=== PATIENT | female | born 2000 | race Caucasian/White ===

== ENCOUNTER 2020-03-08 11:17 | Emergency (ER) | payer OTHER, SELFPAY ==
--- NOTE | ~2020-03-08 | CT_ITS ---
EXAMINATION: CT abdomen pelvis w con EXAM DATE: 03/08/2020 13:47 INDICATION: Vaginal bleeding with low abdominal pain. TECHNIQUE: Spiral CT of the abdomen and pelvis was performed following intravenous injection of 100 m L Omnipaque 350. Axial, coronal and sagittal images were reviewed. The dose-length product (DLP) fo r this examination was 861.56 mGy-cm. The exposure was tailored according to patient size (auto mA e xposure control), and iterative reconstruction (ASIR) was used as additional dose reduction technique . There is no prior study for comparison. FINDINGS: The liver, spleen, adrenal glands and pancreas are unremarkable. Gallbladder is unremarkab le. No biliary obstruction. Portal and splenic veins are patent. Kidneys enhance symmetrically. T here is no hydronephrosis. The uterus is retroverted and morphologically normal. The bladder is u nremarkable. There is no retroperitoneal or pelvic lymphadenopathy. The appendix is normal. The stomach and small bowel are unremarkable. There is expected amount of c olonic stool. No free intraperitoneal gas. The heart is normal in size. There are no pericardial or pleural effusions. The lung bases are unremarkable. The bones are unremarkable. IMPRESSION: 1. No acute intra-abdominal findings. Reviewed, dictated and finalized at location B.
[2020-03-08 11:46] VITALS: BP 137/91; PULSE 88; RESP 20; TEMP 36.9; O2SAT 99
[2020-03-08 12:07] LABS: Add Urine Microscopic? YES; Appearance Urine Clear (Clear); Bilirubin Urine Negative (Negative); Blood Urine 1+ (Negative); Color Urine Yellow (Yellow); Glucose Urine UA Negative (Negative); Ketones Urine Negative (Negative); Leukocyte Esterase Ur Negative LEU/UL (Negative); Mucus Urine Rare /lpf; Nitrate Urine Negative (Negative); Protein Urine Negative (Negative); Squamous Epithelial Cell Urine Occasional /hpf (Few); Urobilinogen Urine Negative mg/dL (<2.0); WBC Urine 0-3 /hpf
[2020-03-08 12:54] LABS: Basophils Percent Auto 0.3 % (0.2-1.2); Eosinophils Absolute Auto 0.2 K/mm3 (0-0.3); Hematocrit 40.3 % (37.0-47.0); Hemoglobin 13.9 g/dL (12.0-15.0); Immature Granulocyte Absolute 0.02 K/mm3 (0.00-0.031); Immature Granulocyte Percent A 0.3 % (0-0.5); Lymphocytes Absolute Auto 1.97 K/mm3 (0.9-3.2); Lymphocytes Percent Auto 25.8 % (18.3-44.2); Mean Corpuscular HGB Conc 34.5 g/dl (32-36); Mean Corpuscular Hemoglobin 33.3 pg (26-34); Mean Corpuscular Volume 96.6 fl (80-100); Mean Platelet Volume 10.2 fl (7.4-10.4); Monocytes Absolute Auto 0.4 K/mm3 (0.1-0.6); Monocytes Percent Auto 4.7 % (2.6-8.5); Neutrophils Absolute Auto 5.1 K/mm3 (1.3-6.7); Neutrophils Percent Auto 66.9 % (45.5-73.1); Platelet Count Result 199 k/mm3 (150-375); Red Blood Count 4.17 M/mm3 (4.2-5.4); Red Cell Distribution Width 11.6 % (11.5-14.5); White Blood Count 7.6 K/mm3 (4.5-10.0)
[2020-03-08] MEDS: KETOROLAC 30 MG/ML VIAL (*BKC) IV PUSH (13:04)
[2020-03-08] MEDS: SODIUM CHLORIDE 0.9% IV 1,000 ML 999 ML IV CONT (13:05)
[2020-03-08 13:07] LABS: Alanine Aminotransferase 12 U/L (4-35); Albumin Level 4.2 g/dL (3.5-5.1); Alkaline Phosphatase 58 U/L (38-126); Anion Gap 6 mmol/L (8-16); Aspartate Amino Transferase 19 U/L (14-36); Bilirubin,Total 0.4 mg/dL (0.2-1.3); Blood Urea Nitrogen 11 mg/dL (7-17); Calcium 8.9 mg/dL (8.4-10.2); Carbon Dioxide 23 mmol/L (22-30); Chloride 109 mmol/L (98-107); Estimated CRCL calculation 109 ml/min; Estimated Glomerular Filt Rate > 60; Glucose 83 mg/dL (65-105); Lipase 15 U/L (23-300); Potassium 4.2 mmol/L (3.4-5.0); Sodium 138 mmol/L (137-145)
--- NOTE | 2020-03-08 13:21 | ED.GENADULT ---
HPI - General Adult General Chief complaint: Vaginal Bleeding Stated complaint: vaginal bleeding Time Seen by Provider: 03/08/20 12:18 Source: patient Limitations: no limitations History of Present Illness HPI narrative: Patient is a 20 y/o female complaining of generalized abdominal pain for about 1 week. She describes her pain as sharp and rates it as 8/10. There is no radiation. There is no alleviating or exacerbating factor. She also has some vomiting and diarrhea, although the vomiting has stopped. She also developed heavy vaginal bleed yesterday. She contacted her doctor and was told to come to ED for evaluation. Related Data Home Medications Medication Instructions Recorded Confirmed norethindrone-e.estradiol-iron 1 tablet PO DAILY 03/08/20 Allergies Allergy/AdvReac Type Severity Reaction Status Date / Time No Known Allergies Allergy Verified 03/08/20 13:05 Review of Systems Constitutional: Constitutional: Denies chills, Denies fever(s), Denies headache(s) and Denies weakness Eyes: Eyes: Denies blurry vision ENT: Denies headache(s) and Denies neck pain Cardiovascular: Cardiovascular: Denies chest pain and Denies dyspnea Respiratory: Respiratory: Denies cough and Denies dyspnea Gastrointestinal: Gastrointestinal: Reports abdominal pain, Reports diarrhea, Reports nausea and Reports vomiting Genitourinary: Genitourinary: Denies hematuria, Reports menorrhagia and Denies dysuria Musculoskeletal: Musculoskeletal: Denies back pain and Denies neck pain Neurologic: Denies headache(s) and Denies weakness Exam Const: General: no acute distress and well developed Orientation/consciousness: oriented to person, oriented to place, oriented to time and patient oriented x3 HENMT: Head: normocephalic Ears: external ears normal General nose exam: Normal external nose present Eyes: General: appearance normal, both eyes and all related structures Conjunctivae: conjunctivae normal Neck: Neck: normal visual inspection and full ROM Chest: Chest palpation & inspection: normal inspection of the chest and no tenderness Resp: Effort & Inspection: normal respiratory effort Auscultation: clear to auscultation bilaterally Cardio: Rate: regular rate Rhythm: regular rhythm GI: GI Palp: No abdominal tenderness and Yes Soft to palpation Skin: General skin exam: normal color and turgor normal Neuro: General: oriented to person, oriented to place, oriented to time and patient oriented x3 Cognition (Neuro): normal cognition Extrem: General: normal to inspection, full ROM and no pedal edema Psych: Appearance: grossly normal Mental Status: mental status grossly normal Affect: normal affect Course Vital Signs Vital signs: Vital Signs Temperature 36.9 C 03/08/20 11:46 Pulse Rate 88 03/08/20 11:46 Respiratory Rate 20 03/08/20 11:46 Blood Pressure 137/91 H 03/08/20 11:46 Pulse Oximetry 99 03/08/20 11:46 Temperature 36.9 C 03/08/20 11:46 Pulse Rate 88 03/08/20 14:00 Respiratory Rate 14 03/08/20 14:00 Blood Pressure 142/68 H 03/08/20 14:00 Pulse Oximetry 100 03/08/20 14:00 Medical Decision Making Vital Signs Vital Signs: Vital Signs Temperature 36.9 C 03/08/20 11:46 Pulse Rate 88 03/08/20 11:46 Respiratory Rate 20 03/08/20 11:46 Blood Pressure 137/91 H 03/08/20 11:46 Pulse Oximetry 99 03/08/20 11:46 Temperature 36.9 C 03/08/20 11:46 Pulse Rate 88 03/08/20 14:00 Respiratory Rate 14 03/08/20 14:00 Blood Pressure 142/68 H 03/08/20 14:00 Pulse Oximetry 100 03/08/20 14:00 Lab Data Result diagrams: 03/08/20 12:37 03/08/20 12:36 Labs: Lab Results 03/08/20 03/08/20 03/08/20 Range/Units 11:58 12:36 12:37 WBC 7.6 (4.5-10.0) K/mm3 RBC 4.17 L (4.2-5.4) M/mm3 Hgb 13.9 (12.0-15.0) g/dL Hct 40.3 (37.0-47.0) % MCV 96.6 (80-100) fl MCH 33.3 (26-34) pg MCHC 34.5 (32-36) g/dl R
[2020-03-08 14:00] VITALS: BP 142/68; PULSE 88; RESP 14; O2SAT 100
== END 2020-03-08 14:14 | disposition home or self-care (01) ==
PROVIDERS: Emergency Medicine; Emergency Provider Emergency Medicine; PCP Pediatrics
DX: N94.6 Dysmenorrhea, unspecified (principal); K52.9 Noninfective gastroenteritis and colitis, unspecified
CPT/HCPCS: 36415; 74177; 80053; 81001; 81025; 83690; 85025; 96361; 96374; 99284; J1885; J7030; Q9967

== ENCOUNTER 2020-09-29 13:05 | Emergency (ER) | payer OTHER, SELFPAY ==
--- NOTE | ~2020-09-29 | US_ITS ---
EXAMINATION: US OB <=14 wk fetus w TV EXAM DATE: 09/29/2020 14:53 INDICATION: Right adnexal pain. . 1st trimester. TECHNIQUE: Pelvic obstetrical transabdominal sonogram was performed by a technologist. There are mu ltiple grayscale and Doppler images available for interpretation. There are no earlier studies of th is gestation for comparison. FINDINGS: Uterus measures 10.2 x 5.4 x 4.1 cm. There is intrauterine gestation sac. pole with heart rate confirmed at 117 beats per minute. The 6 mm crown-rump length corresponds to estimated g estational age by ultrasound of 6 weeks 5 days, estimated date of confinement 05/20/2021. Yolk sac i s identified. There is no sonographic evidence of subchorionic hemorrhage. Both ovaries are ident ified and are morphologically normal, corpus luteal cyst not specifically identified. IMPRESSION: Early live intrauterine gestation. Morphologically normal ovaries. Reviewed, dictated and finalized at location B. [employer]
[2020-09-29 13:29] VITALS: BP 132/79; PULSE 83; RESP 17; TEMP 36.4; O2SAT 100
[2020-09-29 14:01] LABS: Basophils Percent Auto 0.2 % (0.2-1.2); Eosinophils Absolute Auto 0.1 K/mm3 (0-0.3); Eosinophils Percent Auto 0.9 % (0-4.4); Hematocrit 38.2 % (37.0-47.0); Hemoglobin 13.3 g/dL (12.0-15.0); Immature Granulocyte Absolute 0.02 K/mm3 (0.00-0.031); Immature Granulocyte Percent A 0.2 % (0-0.5); Lymphocytes Absolute Auto 2.42 K/mm3 (0.9-3.2); Lymphocytes Percent Auto 23.7 % (18.3-44.2); Mean Corpuscular HGB Conc 34.8 g/dl (32-36); Mean Corpuscular Hemoglobin 33.1 pg (26-34); Mean Platelet Volume 10.2 fl (7.4-10.4); Monocytes Absolute Auto 0.6 K/mm3 (0.1-0.6); Monocytes Percent Auto 5.8 % (2.6-8.5); Neutrophils Absolute Auto 7.1 K/mm3 (1.3-6.7); Neutrophils Percent Auto 69.2 % (45.5-73.1); Platelet Count Result 208 k/mm3 (150-375); Red Blood Count 4.02 M/mm3 (4.2-5.4); Red Cell Distribution Width 11.5 % (11.5-14.5); White Blood Count 10.2 K/mm3 (4.5-10.0)
[2020-09-29 14:03] LABS: Add Urine Microscopic? NO; Appearance Urine Clear (Clear); Bilirubin Urine Negative (Negative); Blood Urine Negative (Negative); Color Urine Straw (Yellow); Glucose Urine UA Negative (Negative); Ketones Urine Negative (Negative); Leukocyte Esterase Ur Negative LEU/UL (Negative); Nitrate Urine Negative (Negative); Protein Urine Negative (Negative); Urobilinogen Urine Negative mg/dL (<2.0)
[2020-09-29 14:13] LABS: Specific Grav Ur 1.003 (1.001-1.035)
[2020-09-29 14:16] LABS: Alanine Aminotransferase 14 U/L (4-35); Alkaline Phosphatase 52 U/L (38-126); Anion Gap 7 mmol/L (8-16); Aspartate Amino Transferase 22 U/L (14-36); Bilirubin,Total 0.2 mg/dL (0.2-1.3); Blood Urea Nitrogen 7 mg/dL (7-17); Calcium 8.7 mg/dL (8.4-10.2); Carbon Dioxide 23 mmol/L (22-30); Chloride 107 mmol/L (98-107); Estimated CRCL calculation 140 ml/min; Estimated Glomerular Filt Rate > 60; Glucose 86 mg/dL (65-105); Lipase 22 U/L (23-300); Potassium 3.9 mmol/L (3.4-5.0); Sodium 137 mmol/L (137-145)
--- NOTE | 2020-09-29 14:46 | PC.NURSE ---
Pt to u/s via w/c.
--- NOTE | 2020-09-29 15:42 | ED.ABDPAIN ---
HPI - Abdominal Pain General Chief Complaint: Abdominal Pain Stated Complaint: sharp abd pain/ 6 weeks Time Seen by Provider: 09/29/20 13:43 History of Present Illness HPI narrative: Patient is a 20-year-old female who presents ER with right-sided pelvic pain. Began today. She reports has been having diarrhea since yesterday. No blood. No fevers or chills or sweats. She denies vaginal bleeding or discharge but is known to be . She sees Dr. Nassar who referred her to the ER. She is G1, P0. LMP in July 2020. Related Data Home Medications Medication Instructions Recorded Confirmed progesterone micronized mg 09/29/20 09/29/20 Allergies Allergy/AdvReac Type Severity Reaction Status Date / Time No Known Allergies Allergy Verified 09/29/20 13:47 Review of Systems Review of Systems: All systems reviewed & are unremarkable except as noted in HPI and below Constitutional: Constitutional: Denies chills, Denies fever(s) and Denies weakness Cardiovascular: Cardiovascular: Denies chest pain and Denies radiating jaw, neck or arm pain Respiratory: Respiratory: Denies cough and Denies dyspnea Gastrointestinal: Gastrointestinal: Reports abdominal pain, Denies diarrhea, Denies nausea and Denies vomiting Genitourinary: Genitourinary: Denies abnormal vaginal bleeding, Denies hematuria, Denies nocturia, Denies dysuria, Denies flank pain and Denies vaginal discharge PMFSH Past Medical History Medical History (Updated 09/29/20 @ 16:29 by Jake Callahan MD) Healthy female adult Surgical History Surgical History (Updated 09/29/20 @ 16:27 by Jake Callahan MD) No history of previous surgery Social History Social History (Updated 09/29/20 @ 16:27 by Jake Callahan MD) Social History: Quit smoking upon finding out she was . Gender identity (if verbalized by the patient): Female Exam Narrative: Exam Narrative: GENERAL: Well-appearing, well-nourished, and in no acute distress. HEAD: Normocephalic, atraumatic. CHEST: Clear to auscultation. No respiratory distress. HEART: Regular rate and rhythm. Normal peripheral pulses. ABDOMEN: Soft, tender in the right pelvic region and no McBurney's point tenderness, no guarding, nondistended. EXTREMITIES: Normal range of motion. No edema. SKIN: Warm, dry, no rash. NEURO: Alert and oriented x3. PSYCH: Normal mood and affect. Course Course Emergency Course: Discussed results with Dr. Swanson office. Pt aware of results as well. Vital Signs Vital signs: Vital Signs Temperature 97.6 F 09/29/20 13:29 Pulse Rate 83 09/29/20 13:29 Respiratory Rate 17 09/29/20 13:29 Blood Pressure 132/79 09/29/20 13:29 Pulse Oximetry 100 09/29/20 13:29 Temperature 97.6 F 09/29/20 13:29 Pulse Rate 83 09/29/20 13:29 Respiratory Rate 17 09/29/20 13:29 Blood Pressure 132/79 09/29/20 13:29 Pulse Oximetry 100 09/29/20 13:29 MDM - Abdominal Pain Lab Data Result diagrams: 09/29/20 13:48 09/29/20 13:48 Labs: Lab Results 09/29/20 09/29/20 09/29/20 Range/Units 13:48 13:48 13:48 WBC 10.2 H (4.5-10.0) K/mm3 RBC 4.02 L (4.2-5.4) M/mm3 Hgb 13.3 (12.0-15.0) g/dL Hct 38.2 (37.0-47.0) % MCV 95.0 (80-100) fl MCH 33.1 (26-34) pg MCHC 34.8 (32-36) g/dl RDW 11.5 (11.5-14.5) % Plt Count 208 (150-375) k/mm3 MPV 10.2 (7.4-10.4) fl Immature Gran % (Auto) 0.2 (0-0.5) % Neut % (Auto) 69.2 (45.5-73.1) % Lymph % (Auto) 23.7 (18.3-44.2) % Logan % (Auto) 5.8 (2.6-8.5) % Eos % (Auto) 0.9 (0-4.4) % Baso % (Auto) 0.2 (0.2-1.2) % Lymph # (Auto) 2.42 (0.9-3.2) K/mm3 Logan # (Auto) 0.6 (0.1-0.6) K/mm3 Eos # (Auto) 0.1 (0-0.3) K/mm3 Baso # (Auto) 0.0 (0.0-0.1) K/mm3 Abs Immat Gran (auto) 0.02 (0.00-0.031) K/mm3 Absolute Neuts (auto) 7.1 H (1.3-6.7) K/mm3 Absolute Nucleated RBC 0.0 (0.0-0
[2020-09-29 16:45] VITALS: BP 124/76; PULSE 72; RESP 15; O2SAT 97
== END 2020-09-29 16:49 | disposition home or self-care (01) ==
PROVIDERS: Emergency Provider Emergency Medicine
DX: O26.891 Other specified pregnancy related conditions, first trimester (principal); R10.2 Pelvic and perineal pain; Z87.891 Personal history of nicotine dependence; Z3A.01 Less than 8 weeks gestation of pregnancy
CPT/HCPCS: 36415; 76801; 76817; 80053; 81003; 81025; 83690; 84702; 85025; 99284

== ENCOUNTER 2020-10-26 07:29 | Outpatient (CLI) | payer OTHER, SELFPAY ==
--- NOTE | ~2020-10-26 | US_ITS ---
EXAMINATION: US OB <= 14 weeks fetus EXAM DATE: 10/26/2020 08:00 INDICATION: Routine care. 1st trimester. TECHNIQUE: Pelvic obstetrical transabdominal sonogram was performed by a technologist. There are mu ltiple grayscale and Doppler images available for interpretation. Comparison is made to prior examina tion from 09/29/2020. FINDINGS: Uterus measures 12.5 x 7.4 x 9.0 cm. There is intrauterine gestation sac. pole with heart rate confirmed at 163 beats per minute. The 3.5 cm crown-rump length corresponds to estimated gestational age by ultrasound of 10 weeks 3 days, estimated date of confinement 05/21. There is no sonographic evidence of subchorionic hemorrhage. Ovaries were searched for but not specifically bess ntified on this transabdominal exam. IMPRESSION: Live intrauterine gestation, age by ultrasound 10 weeks 3 days. Reviewed, dictated and finalized at location A.
== END 2020-10-26 07:30 | disposition home or self-care (01) ==
PROVIDERS: Visit Provider Physician Assistant
DX: Z34.91 Encounter for supervision of normal pregnancy, unspecified, first trimester (principal); Z3A.10 10 weeks gestation of pregnancy
CPT/HCPCS: 76801

== ENCOUNTER 2021-01-01 08:17 | Outpatient (CLI) | payer OTHER, SELFPAY ==
--- NOTE | ~2021-01-01 | US_ITS ---
EXAMINATION: US OB /maternal detail DATE: 01/01/2021 09:38 INDICATION: Supervision of normal during second trimester TECHNIQUE: Multiple obstetric sonographic images performed. FINDINGS: There is a single living fetus in vertex presentation. The placenta is anterior and not low-lying. A FI measures 14.6 cm which is normal (5th%-95%: 9.3-21.2 cm at 20 weeks estimated gestational age) Fet al heart rate of 145 beats per minute. The following anatomy was identified as normal: Ventricles, choroid plexus, falx and cava septum pellucidum Cerebellum and cisterna magna Nuchal fold Upper lip Spine Heart Diaphragm Stomach Kidneys Bladder 3 vessel cord and cord insertion Bilateral upper and lower extremities including hands and feet The following biometric data were obtained: BPD: 4.9 cm -> 20 weeks 5 days Head circumference: 17.5 cm -> 20 weeks 0 days Abdominal circumference: 15.6 cm -> 20 weeks 5 days Femur length: 3.2 cm -> 19 weeks 6 days These measurements are concordant. Head circumference to abdominal circumference ratio: 1.13 (normal range 1.07-1.25). Estimated weight: 345 g (+/-) 52 g. or 12 oz. (+/-) 2 oz. IMPRESSION: 1. Single living fetus with vertex presentation with heart rate of 145 bpm. 2. Normal amniotic fluid index of 14.6 cm. 3. Estimated weight is 55th percentile by Hadlock criteria when 05/20/2021 is used as the COLT. Please correlate with clinical information or earlier ultrasounds for most accurate COLT. 4. Normal survey. Reviewed, dictated and finalized at location A. IMPRESSION: 1. Single living fetus with vertex presentation with heart rate of 145 b pm. 2. Normal amniotic fluid index of 14.6 cm. 3. Estimated weight is 55th percentile by Hadlock criteria when is used as the COLT. Please correlate with clinical information or earlier ult rasounds for most accurate COLT. 4. Normal survey.
== END 2021-01-01 08:18 | disposition home or self-care (01) ==
LOC: ANHIMG 08:19
PROVIDERS: Visit Provider Physician Assistant
DX: Z34.90 Encounter for supervision of normal pregnancy, unspecified, unspecified trimester (principal); Z3A.00 Weeks of gestation of pregnancy not specified
CPT/HCPCS: 76805

== ENCOUNTER 2021-01-10 10:54 | Emergency (ER) | payer OTHER, SELFPAY ==
--- NOTE | 2021-01-10 11:19 | ED.SKABFB ---
HPI - Skin/Abscess/Foreign Bdy General Chief complaint: Skin/Abscess/Foreign Body Stated complaint: abscess l leg Time Seen by Provider: 01/10/21 11:05 History of Present Illness HPI narrative: Swollen, painful area on inner thigh near gluteal fold on the left. Started as an ingrown hair. She has noticed some drainage. No systemic symptoms. Related Data Home Medications Medication Instructions Recorded Confirmed progesterone micronized mg 09/29/20 09/29/20 PNV cmb#95-ferrous fumarate-FA tablet PO 01/10/21 [] Allergies Allergy/AdvReac Type Severity Reaction Status Date / Time No Known Allergies Allergy Verified 01/10/21 11:29 Review of Systems Review of Systems: All systems reviewed & are unremarkable except as noted in HPI and below Constitutional: Constitutional: Denies chills and Denies fever(s) Respiratory: Respiratory: Denies dyspnea Gastrointestinal: Gastrointestinal: Denies nausea Neurologic: Reports system reviewed and no additional complaints, except as documented PMFSH Past Medical History Medical History Healthy female adult Surgical History Surgical History No history of previous surgery Social History Social History Social History: Quit smoking upon finding out she was . Gender identity (if verbalized by the patient): Female Exam Const: General: healthy appearing, no acute distress and alert Orientation/consciousness: patient oriented x3 HENMT: Head: normal to inspection Resp: Effort & Inspection: normal respiratory effort Auscultation: clear to auscultation bilaterally, no rales, no rhonchi and no wheezes Cardio: Jugular venous distension: no JVD Rate: regular rate Rhythm: regular rhythm Heart sounds: no murmurs GI: GI Palp: Yes Soft to palpation and No Tenderness to palpation present (GI) : External Female Exam: normal external appearance Skin: Other: mildly erythematous and indurated area to left inner thigh. Neuro: General: patient oriented x3 and moves all extremities Speech: normal speech Extrem: General: no edema Psych: Appearance: well kempt Affect: normal affect Course Vital Signs Vital signs: Vital Signs Temperature 36.3 C L 01/10/21 11:23 Pulse Rate 90 01/10/21 11:23 Respiratory Rate 16 01/10/21 11:23 Blood Pressure 139/72 01/10/21 11:23 Pulse Oximetry 100 01/10/21 11:23 Temperature 36.8 C 01/10/21 13:05 Pulse Rate 81 01/10/21 13:05 Respiratory Rate 16 01/10/21 13:05 Blood Pressure 138/86 01/10/21 13:05 Pulse Oximetry 99 01/10/21 13:05 Procedures Abscess I/D lower extremity: Side (if applicable): left Local Anesthetic: lidocaine 1% and with epi Amount of anesthesia used (mL): 3 Technique: incised with #11 blade Amount of fluid expressed (mL): 0.5 Irrigation: Yes Packing used?: none I&D Results: Pus MDM - Skin/Abscess/Foreign Bdy Differential Diagnosis Differential diagnosis: Likely abscess of skin or subcutaneous tissue Medical Records Attestation: I reviewed the patient's medical records. Lab Data Attestation: I reviewed the patient's lab results. Discharge Plan Discharge Clinical Impression: Abscess, gluteal Patient Disposition: Home, Self-Care Condition: Stable Instructions: Antibiotic Form, Abscess (ED) Prescriptions: New clindamycin HCl 300 mg capsule 300 mg PO BID 7 Days Qty: 14 RF: 0 No Action PNV cmb#95-ferrous fumarate-FA [] 28 mg iron- 800 mcg tablet PO RF: 0 progesterone micronized 200 mg capsule RF: 0 Follow-up/Referrals: PHYSICIAN,GASKET MAKER [Primary Care Provider] - Yared Whitley MD [Physician] -
[2021-01-10 11:23] VITALS: BP 139/72; PULSE 90; RESP 16; TEMP 36.3; O2SAT 100
[2021-01-10] MEDS: CLINDAMYCIN HCL 150 MG CAP 450 MG PO (11:29)
[2021-01-10 13:05] VITALS: BP 138/86; PULSE 81; RESP 16; TEMP 36.8; O2SAT 99
== END 2021-01-10 13:05 | disposition home or self-care (01) ==
PROVIDERS: Emergency Provider Emergency Medicine
DX: L02.31 Cutaneous abscess of buttock (principal); Z87.891 Personal history of nicotine dependence
CPT/HCPCS: 10060; 99283; A9270

== ENCOUNTER 2021-02-21 20:14 | Observation (INO) | payer OTHER, SELFPAY ==
[2021-02-21 20:21] VITALS: BP 129/87; PULSE 102; RESP 18; TEMP 37.1; O2SAT 100
[2021-02-21 20:47] LABS: Add Urine Microscopic? YES; Appearance Urine Cloudy (Clear); Bacteria Urine Trace /hpf; Bilirubin Urine Negative (Negative); Blood Urine Negative (Negative); Color Urine Yellow (Yellow); Glucose Urine UA 1+ mg/dL (Negative); Ketones Urine Negative (Negative); Leukocyte Esterase Ur 3+ LEU/UL (Negative); Mucus Urine Rare /lpf; Nitrate Urine Negative (Negative); Protein Urine Negative (Negative); RBC Urine 0-2 /hpf (0-2); Specific Grav Ur 1.015 (1.001-1.035); Squamous Epithelial Cell Urine Occasional /hpf (Few); Urobilinogen Urine Negative mg/dL (<2.0)
[2021-02-21 21:17] VITALS: BP 140/84; PULSE 102; O2SAT 98
--- NOTE | 2021-02-21 22:38 | ED.FEMALEGU ---
HPI - Female Genitourinary General Chief complaint: Urogenital-Female Stated complaint: blood in urine, 28 wks Time Seen by Provider: 02/21/21 21:42 Source: patient Mode of arrival: ambulatory Limitations: no limitations History of Present Illness HPI Narrative: 21-year-old female She is [address] Nassar, no prior issues with the Patient reports that today she has had some low back pain on the right side and when she urinated some pinkish fluid which she takes to be blood She does not believe that this is a bloody vaginal discharge However she is concerned about this because she also has not felt her baby moving since this morning Related Data Home Medications Medication Instructions Recorded Confirmed progesterone micronized mg 09/29/20 09/29/20 PNV cmb#95-ferrous fumarate-FA tablet PO 01/10/21 [] Allergies Allergy/AdvReac Type Severity Reaction Status Date / Time No Known Allergies Allergy Verified 02/21/21 20:24 Review of Systems Review of Systems: All systems reviewed & are unremarkable except as noted in HPI and below Constitutional: Constitutional: Reports no additional constitutional complaints, Denies chills, Denies fever(s) and Denies headache(s) Eyes: Eyes: Reports no additional eye complaints and Denies change in vision ENT: Denies headache(s) and Denies sore throat Cardiovascular: Cardiovascular: Denies chest pain and Denies dyspnea Respiratory: Respiratory: Denies cough and Denies dyspnea Gastrointestinal: Gastrointestinal: Denies abdominal pain, Denies diarrhea and Denies vomiting Genitourinary: Genitourinary: Denies abnormal vaginal bleeding, Reports hematuria, Denies urinary frequency, Denies nocturia and Denies dysuria Musculoskeletal: Musculoskeletal: Denies deformity, Denies arthralgias, Denies joint swelling and Denies numbness Integumentary/Breasts: Skin/Breast: Denies rash and Denies wounds Neurologic: Denies headache(s), Denies focal weakness and Denies numbness Psychiatric: Psychiatric: Reports no additional psychiatric complaints Endocrine: Endocrine: Reports no additional endocrine complaints Hematologic/Lymphatic: Hematologic/Lymphatic: Reports no additional hematologic/lymphatic complaints Allergic/Immunologic: Allergic/Immunologic: Reports no additional allergic/immunologic complaints PMFSH Past Medical History Medical History Healthy female adult Surgical History Surgical History No history of previous surgery Social History Social History Social History: Quit smoking upon finding out she was . Gender identity (if verbalized by the patient): Female Exam Const: General: cooperative, no acute distress and alert Orientation/consciousness: patient oriented x3 (alert) HENMT: Head: normal to inspection, normocephalic and atraumatic Ears: external ears normal General nose exam: no epistaxis Eyes: Conjunctivae: conjunctivae normal EOM: EOMs intact bilaterally Neck: Neck: normal visual inspection, supple and no JVD Resp: Effort & Inspection: normal respiratory effort and not labored Auscultation: other (BS =) Cardio: Rate: regular rate Rhythm: regular rhythm GI: GI Palp: Yes Soft to palpation, No Tenderness to palpation present (GI), No Guarding due to palpation present (GI) and No Rebound tenderness present Other: Fundal height appropriate to dates, no tenderness, heart tones present at 144 : General: Yes no CVA tenderness Skin: General skin exam: normal color and no rashes or lesions noted Neuro: General: patient oriented x3 (alert) and moves all extremities Speech: normal speech Extrem: General: normal to inspection and no pedal edema Psych: Affect: normal affect Course Course Emergency [facility]
[2021-02-21 23:00] VITALS: BMI 40.7
[2021-02-21 23:01] VITALS: BP 134/89; PULSE 100
[2021-02-21 23:16] VITALS: BP 128/90; PULSE 97
[2021-02-21 23:30] VITALS: BP 128/78; PULSE 91
--- NOTE | 2021-02-22 12:15 | P.PNOB_ITS ---
OB - Triage/Final Diagnosis Visit Information Reason for evaluation: threatened labor Comments/Additional reasons for admission: I have assessed the risk for this patient, Michell Rosario, and determined that she would benefit from observation care. Evaluation Laboratory results: Laboratory Tests 02/21/21 20:33 Urine Color Yellow Urine Appearance Cloudy H Urine pH 7.0 Ur Specific Spencer 1.015 Urine Protein Negative Urine Glucose (UA) 1+ H Urine Ketones Negative Ur Blood (Man) Negative Urine Nitrate Negative Urine Bilirubin Negative Urine Urobilinogen Negative Leukocyte Esterase Rfl 3+ H Urine RBC 0-2 Urine WBC 4-6 H Ur Squamous Epith Cells Occasional Urine Bacteria Trace Urine Mucus Rare Vital signs: Vital Signs - 24 hr 02/21/21 20:21 02/21/21 21:17 02/21/21 23:01 Temperature 37.1 C Pulse Rate 102 H 102 H 100 Respiratory Rate 18 Blood Pressure 129/87 140/84 134/89 Pulse Oximetry 100 98 02/21/21 23:16 02/21/21 23:30 Temperature Pulse Rate 97 91 Respiratory Rate Blood Pressure 128/90 128/78 Pulse Oximetry
== END 2021-02-21 23:41 | disposition home or self-care (01) ==
LOC: ANHED 22:22 → ANHOBPP 23:01
PROVIDERS: Admitting Provider Obstetrics & Gynecology; Emergency Provider Emergency Medicine; Visit Provider Obstetrics & Gynecology
DX: O47.02 False labor before 37 completed weeks of gestation, second trimester (principal); Z3A.27 27 weeks gestation of pregnancy; R30.0 Dysuria
CPT/HCPCS: 81001; 81025; 99285; G0378; G0379

== ENCOUNTER 2021-03-14 09:35 | Outpatient (CLI) | payer OTHER, SELFPAY ==
--- NOTE | ~2021-03-14 | US_ITS ---
EXAMINATION: US OB follow up DATE: 03/14/2021 10:14 INDICATION: Routine care TECHNIQUE: Real-time ultrasound of the pelvis was performed. The interpreting radiologist was not pre sent for the study. COMPARISON: 01/01/2021 and 09/29/2020 FINDINGS: There is a single living fetus in vertex presentation. The placenta is anterior. heart rate is 140 beats per minute (bpm). The amniotic fluid index is 16.2 cm, which is normal (5th%-95%: 9.0-23. 4 cm at 30 weeks estimated gestational age). The following biometric data were obtained: BPD: 7.6 cm -> 30 weeks 4 days Head circumference: 27.9 cm -> 30 weeks 4 days Abdominal circumference: 27.4 cm -> 31 weeks 3 days Femur length: 5.9 cm -> 30 weeks 4 days These measurements are concordant. Head circumference to abdominal circumference ratio: 1.02 (normal range 0.96-1.17). Estimated weight: 1684 g (+/-) 253 g or 3 lbs. 11 oz. (+/-) 9 oz. IMPRESSION: 1. Single living fetus in vertex presentation with heart rate of 140 bpm. 2. Normal amniotic fluid index of 16.2 cm. 3. Estimated weight is 48th percentile by Hadlock criteria when 05/18/2021 is used as the estim ated date of delivery (COLT). Please correlate with clinical information or earlier ultrasounds for mo st accurate COLT. Reviewed, dictated and finalized at location B. IMPRESSION: 1. Single living fetus in vertex presentation with heart rate of 140 bpm. 2. Normal amniotic fluid index of 16.2 cm. 3. Estimated weight is 48th percentile by Hadlock criteria when 1 is used as the estimated date of delivery (COLT). Please correlate with clinic al information or earlier ultrasounds for most accurate COLT.
== END 2021-03-14 09:36 | disposition home or self-care (01) ==
PROVIDERS: PCP Physician Assistant; Visit Provider Physician Assistant
DX: Z34.02 Encounter for supervision of normal first pregnancy, second trimester (principal)
CPT/HCPCS: 76816

== ENCOUNTER 2021-05-02 14:38 | Outpatient (CLI) | payer OTHER, SELFPAY ==
[2021-05-02] VITALS (10 sets, daily range): BP systolic 131–162; BP diastolic 80–94; PULSE 104–121
[2021-05-02 16:05] LABS: Basophils Percent Auto 0.1 % (0.2-1.2); Eosinophils Absolute Auto 0.1 K/mm3 (0-0.3); Eosinophils Percent Auto 0.6 % (0-4.4); Hematocrit 39.2 % (37.0-47.0); Hemoglobin 12.9 g/dL (12.0-15.0); Immature Granulocyte Absolute 0.03 K/mm3 (0.00-0.031); Immature Granulocyte Percent A 0.3 % (0-0.5); Lymphocytes Absolute Auto 2.29 K/mm3 (0.9-3.2); Lymphocytes Percent Auto 21.2 % (18.3-44.2); Mean Corpuscular HGB Conc 32.9 g/dl (32-36); Mean Corpuscular Hemoglobin 31.6 pg (26-34); Mean Corpuscular Volume 96.1 fl (80-100); Monocytes Absolute Auto 0.6 K/mm3 (0.1-0.6); Monocytes Percent Auto 5.8 % (2.6-8.5); Neutrophils Absolute Auto 7.8 K/mm3 (1.3-6.7); Platelet Count Result 225 k/mm3 (150-375); Red Blood Count 4.08 M/mm3 (4.2-5.4); Red Cell Distribution Width 12.6 % (11.5-14.5); White Blood Count 10.8 K/mm3 (4.5-10.0)
--- NOTE | 2021-05-02 16:05 | PC.NURSE ---
1527- Spoke with Dr. Nassar, ROM plus negative, BP's elevated, orders for PIH labs
[2021-05-02 16:15] LABS: Add Urine Microscopic? YES; Appearance Urine Clear (Clear); Bacteria Urine 1+ /hpf; Bilirubin Urine Negative (Negative); Blood Urine Negative (Negative); Color Urine Straw (Yellow); Glucose Urine UA Negative (Negative); Ketones Urine Negative (Negative); Leukocyte Esterase Ur 2+ LEU/UL (NEGATIVE); Mucus Urine Rare /lpf; Nitrate Urine Negative (Negative); Protein Urine Negative (Negative); RBC Urine 0-2 /hpf (0-2); Specific Grav Ur 1.005 (1.001-1.035); Squamous Epithelial Cell Urine Few /hpf (Few); Urobilinogen Urine Negative mg/dL (<2.0)
[2021-05-02 16:38] LABS: Alanine Aminotransferase 9 U/L (4-35); Albumin Level 3.7 g/dL (3.5-5.1); Alkaline Phosphatase 202 U/L (38-126); Anion Gap 8 mmol/L (8-16); Aspartate Amino Transferase 15 U/L (14-36); Bilirubin,Total < 0.1 mg/dL (0.2-1.3); Blood Urea Nitrogen 8 mg/dL (7-17); Calcium 9.4 mg/dL (8.4-10.2); Carbon Dioxide 18 mmol/L (22-30); Chloride 108 mmol/L (98-107); Estimated Glomerular Filt Rate > 60; Glucose 68 mg/dL (65-110); Potassium 4.4 mmol/L (3.4-5.0); Sodium 134 mmol/L (137-145); Uric Acid 4.9 mg/dL (2.5-7.5)
--- NOTE | 2021-05-02 16:58 | P.PNOB_ITS ---
OB - Triage/Final Diagnosis Visit Information Comments/Additional reasons for admission: I have assessed the risk for this patient, Mihcell Rosario, and determined that she would benefit from observation care. Evaluation Laboratory results: Laboratory Tests 05/02/21 05/02/21 05/02/21 15:37 15:37 15:37 WBC 10.8 H RBC 4.08 L Hgb 12.9 Hct 39.2 MCV 96.1 MCH 31.6 MCHC 32.9 RDW 12.6 Plt Count 225 MPV 11.0 H Immature Gran % (Auto) 0.3 Neut % (Auto) 72.0 Lymph % (Auto) 21.2 Meagher % (Auto) 5.8 Eos % (Auto) 0.6 Baso % (Auto) 0.1 L Lymph # (Auto) 2.29 Meagher # (Auto) 0.6 Eos # (Auto) 0.1 Baso # (Auto) 0.0 Abs Immat Gran (auto) 0.03 Absolute Neuts (auto) 7.8 H Absolute Nucleated RBC 0.0 Nucleated RBC % 0.0 Sodium 134 L Potassium 4.4 Chloride 108 H Carbon Dioxide 18 L Anion Gap 8 BUN 8 Creatinine 0.50 L Estim Creat Clear Calc Not Reportable Estimated GFR > 60 Glucose 68 Uric Acid 4.9 Calcium 9.4 Total Bilirubin < 0.1 L AST 15 ALT 9 Alkaline Phosphatase 202 H Total Protein 7.0 Albumin 3.7 Urine Color Straw Urine Appearance Clear Urine pH 7.0 Ur Specific [place] 1.005 Urine Protein Negative Urine Glucose (UA) Negative Urine Ketones Negative Ur Blood (Man) Negative Urine Nitrate Negative Urine Bilirubin Negative Urine Urobilinogen Negative Ur Leukocyte Esterase 2+ H Urine RBC 0-2 Urine WBC 7-9 H Ur Squamous Epith Cells Few Urine Bacteria 1+ H Urine Mucus Rare Final Diagnosis (1) Term : Code(s): Z34.90 - Encounter for supervision of normal , unspecified, unspecified trimester Status: Acute (2) False labor after 37 weeks of gestation without delivery: Code(s): O47.1 - False labor at or after 37 completed weeks of gestation Status: Acute
[2021-05-02 17:03] LABS: Creatinine Urine 22.3 mg/dL; Total Protein Urine Random 13 mg/dL; Ur Ttl Prot Creatinine Ratio 0.58 mg/mg (0-0.20)
--- NOTE | 2021-05-02 17:03 | PC.NURSE ---
1700- SPoke with Dr. Nassar, BPs and labs reviewed. Orders to discharge to home.
== END 2021-05-02 17:03 | disposition home or self-care (01) ==
LOC: ANHOBOP 15:21 → ANHLDR 15:22
PROVIDERS: PCP Physician Assistant; Visit Provider Obstetrics & Gynecology
DX: O42.90 Premature rupture of membranes, unspecified as to length of time between rupture and onset of labor, unspecified weeks of gestation (principal); Z3A.00 Weeks of gestation of pregnancy not specified
CPT/HCPCS: 36415; 80053; 81001; 82570; 84112; 84156; 84550; 85025; 87086; 87088; 99199

== ENCOUNTER 2021-05-05 06:57 | Inpatient (IN) | payer OTHER, SELFPAY ==
[2021-05-05] VITALS (31 sets, daily range): BP systolic 117–164; BP diastolic 66–106; PULSE 85–113; TEMP 36.4–36.9; BMI 45.3
--- NOTE | 2021-05-05 07:22 | PM.IMHP ---
H&P: HPI History of Present Illness Date/Time: 05/05/21 07:22 21 y/o F presenting for Induction of labor at 37w6d. complicated by PIH-found to have RPC ratio 0.58 wih HTN 150/90 symptomatic needs to have IOL cervical ripening and pitocin with magnesium sulfate during active labor. her is also complicated by MTHFR she has been on progesterone folic acid B12 an aspirin; Group B strep carrier, history of chlamydia, HSV on antiviral therapy as well as varicella and rubella nonimmune. I explained her condition procedure and risk involved maternal or indications for delivery with risk involved including but not limited to bleeding infection injury to bladder bowel baby pelvic vessels DVT T pneumonia wound infection endometritis UTI the risk of anesthesia risk of shoulder dystocia and the risk of hemorrhage. Informed consent obtained. Her care began 10/04/2020 she has had 10 visits pregnancies been Roopa evaluated with serial ultrasounds each trimester with normal interval growth, noninvasive testing negative for genetic abnormalities with male identified, MTHFR positive, AFP negative, 1 hour glucose normal, GBS positive with last outbreak of herpes September 2020. 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 Francis, PPBC IUD. Boy, name Vciente Marinelli yes to circumcision. Chief Complaint: term with -induced hypertension elective induction of labor Review of Systems Review of Systems: All systems reviewed & are unremarkable except as noted in HPI and below Constitutional: Constitutional: Reports no additional constitutional complaints Eyes: Eyes: Reports no additional eye complaints ENT: Reports system reviewed and no additional complaints, except as documented Cardiovascular: Cardiovascular: Reports no additional cardiovascular complaints Respiratory: Respiratory: Reports no additional respiratory complaints Gastrointestinal: Gastrointestinal: Reports no additional gastrointestinal complaints Genitourinary: Genitourinary: Reports no additional female genitourinary complaints Musculoskeletal: Musculoskeletal: Reports no additional musculoskeletal complaints Integumentary/Breasts: Skin/Breast: Reports system reviewed and no additional complaints, except as docu Neurologic: Reports system reviewed and no additional complaints, except as documented Psychiatric: Psychiatric: Reports no additional psychiatric complaints Endocrine: Endocrine: Reports no additional endocrine complaints Hematologic/Lymphatic: Hematologic/Lymphatic: Reports no additional hematologic/lymphatic complaints Allergic/Immunologic: Allergic/Immunologic: Reports no additional allergic/immunologic complaints [facility] Past Medical History Medical History (Updated 05/05/21 @ 07:36 by Thomas Nassar MD) GBS (group B Streptococcus carrier), +RV culture, currently Genital herpes Healthy female adult Heterozygous MTHFR mutation C677T Maternal varicella, non-immune Obesity (BMI 35.0-39.9 without comorbidity) induced hypertension Rubella non-immune status, antepartum Surgical History Surgical History No history of previous surgery Social History Social History (Updated 05/05/21 @ 07:35 by Thomas Nassar MD) Social History: Quit smoking upon finding out she was . Smoking packs per day: 1 Smoking cigarettes per day: 20.0 Years smoked: 1 Smoking pack-years: 1.00 Smoking status: Current every day smoker Tobacco type: cigarettes Second hand tobacco smoke exposure: Yes Alcohol intake: never Substance use: current Substance use type: marijuana Living arrangements: with family Occupation/Education: unemployed Gender identity (if verbalized by the patient): Female Sexual Orientation (if Verbalized by the Patient): Straight or He
--- NOTE | 2021-05-05 07:27 | LDADM ---
This patient, Michell Rosario, was admitted to Labor/Delivery/Recovery 102 on 05/05/21 at 06:57. Plans for labor, pain management and were discussed with patient. Patient/family oriented to hospital policies and general routines including ID bracelet, bed and alarms, visiting hours, pain management, procedures, bathroom and other care routines, personal items, smoking policy, room service/diet and guest tray routines, security routines, and visiting hours. Patient/Family are encouraged to report perceived risks to care and to ask questions if they do not understand what they are told or what they should do. See OBIX for further documentation.
--- NOTE | 2021-05-05 07:31 | WPDOBADMIT ---
Obstetrics - Admit Note Admission Note: record reviewed. No pertinent additions to the history and/or any subsequent changes in the physical findings that are not consistent with the expected course of the were found. Additions to the history and/or subsequent changes in the physical findings follow. None. 21 y/o F presenting for Induction of labor at 37w6d. complicated by PIH-found to have RPC ratio 0.58 wih HTN 150/90 symptomatic needs to have IOL cervical ripening and pitocin with magnesium sulfate during active labor. her is also complicated by MTHFR she has been on progesterone folic acid B12 an aspirin; Group B strep carrier, history of chlamydia, HSV on antiviral therapy as well as varicella and rubella nonimmune. I explained her condition procedure and risk involved maternal or indications for delivery with risk involved including but not limited to bleeding infection injury to bladder bowel baby pelvic vessels DVT T pneumonia wound infection endometritis UTI the risk of anesthesia risk of shoulder dystocia and the risk of hemorrhage. Informed consent obtained. Her care began 10/04/2020 she has had 10 visits pregnancies been Ro[place] evaluated with serial ultrasounds each trimester with normal interval growth, noninvasive testing negative for genetic abnormalities with male infant identified, MTHFR positive, AFP negative, 1 hour glucose normal, GBS positive with last outbreak of herpes September 2020. 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 VIOLET Blanco IUD. Boy, name Vicentestephanie Marinelli yes to circumcision.
[2021-05-05 07:53] LABS: Basophils Percent Auto 0.2 % (0.2-1.2); Eosinophils Absolute Auto 0.1 K/mm3 (0-0.3); Eosinophils Percent Auto 0.8 % (0-4.4); Hematocrit 37.2 % (37.0-47.0); Hemoglobin 12.4 g/dL (12.0-15.0); Immature Granulocyte Absolute 0.03 K/mm3 (0.00-0.031); Immature Granulocyte Percent A 0.3 % (0-0.5); Lymphocytes Absolute Auto 2.65 K/mm3 (0.9-3.2); Lymphocytes Percent Auto 25.6 % (18.3-44.2); Mean Corpuscular HGB Conc 33.3 g/dl (32-36); Mean Corpuscular Hemoglobin 31.9 pg (26-34); Mean Corpuscular Volume 95.6 fl (80-100); Mean Platelet Volume 11.3 fl (7.4-10.4); Monocytes Absolute Auto 0.5 K/mm3 (0.1-0.6); Monocytes Percent Auto 5.2 % (2.6-8.5); Neutrophils Percent Auto 67.9 % (45.5-73.1); Platelet Count Result 226 k/mm3 (150-375); Red Blood Count 3.89 M/mm3 (4.2-5.4); Red Cell Distribution Width 12.7 % (11.5-14.5); White Blood Count 10.3 K/mm3 (4.5-10.0)
[2021-05-05] MEDS: DINOPROSTONE 10 MG VAG INSERT VAGINAL ×2 (07:56→21:08)
[2021-05-05 08:07] LABS: Alanine Aminotransferase 10 U/L (4-35); Albumin Level 3.5 g/dL (3.5-5.1); Alkaline Phosphatase 189 U/L (38-126); Anion Gap 8 mmol/L (8-16); Aspartate Amino Transferase 17 U/L (14-36); Bilirubin,Total 0.3 mg/dL (0.2-1.3); Blood Urea Nitrogen 12 mg/dL (7-17); Calcium 9.1 mg/dL (8.4-10.2); Carbon Dioxide 19 mmol/L (22-30); Chloride 106 mmol/L (98-107); Estimated CRCL calculation 161 ml/min; Estimated Glomerular Filt Rate > 60; Glucose 92 mg/dL (65-110); Sodium 133 mmol/L (137-145); Uric Acid 4.9 mg/dL (2.5-7.5)
[2021-05-05 08:22] LABS: Barbiturate Screen Urine Negative (Negative); Benzodiazepines Screen Urine Negative (Negative)
[2021-05-05 08:25] LABS: Amphetamine Screen Urine Negative (Negative); Cannabinoid Screen Urine Negative (Negative); Methadone Screen Urine Negative (Negative); Opiate Screen Urine Negative (Negative); Phencyclidine Screen Urine Negative (Negative)
[2021-05-05 09:01] LABS: HIV 1/2 Ab P24 Ag Result Negative (Negative)
[2021-05-05 11:51] LABS: Rapid Plasma Reagin Non-Reactive (NonReactive)
[2021-05-05 17:49] LABS: Cocaine Screen Urine Negative (Negative)
[2021-05-05] MEDS: ACETAMINOPHEN 500 MG TABLET 1000 MG PO (21:09)
[2021-05-05] MEDS: ZOLPIDEM TARTRATE (*CRX) 5 MG TABLET PO (22:56)
[2021-05-06] VITALS (111 sets, daily range): BP systolic 71–166; BP diastolic 36–113; PULSE 82–157; RESP 14–20; TEMP 36.4–37.1; O2SAT 96–100
--- NOTE | 2021-05-06 09:16 | PM.OBPNLAB ---
Pain Control Date/time seen: 05/05/21 21:16 Pain control: tolerating well Comments: Has headache Tylenol given Pelvic Exam Dilation (cm): 0 Effacement (%): 0 station: -4 Contractions Monitor mode: External Contraction pattern: Irregular Contraction intensity: Mild Status status: Category l Assessment and Plan Assessment: induction ongoing Plan: continuous present management Comments: Repeat Cervidil re-evaluate the morning for Cytotec
--- NOTE | 2021-05-06 09:17 | PM.OBPNLAB ---
Pain Control Date/time seen: 05/06/21 09:17 Pelvic Exam Dilation (cm): 0 Effacement (%): 0 station: -4 Contractions Monitor mode: External Contraction pattern: Irregular Contraction intensity: Mild Status status: Category l Assessment and Plan Assessment: induction ongoing Plan: continuous present management Comments: Will remove Cervidil this morning allowed to shower and then Cytotec for several doses followed by Pitocin after getting epidural will artificially rupture the membranes and place internal monitors and observed in labor will also begin antibiotic prophylaxis for GBS as well as magnesium sulfate for PIH and prevention of eclampsia
[2021-05-06] MEDS: miSOPROStol 25 MCG TABLET VAGINAL ×2 (10:19→14:18)
--- NOTE | 2021-05-06 15:13 | P.PNOB_ITS ---
Pain Control Date/time seen: 05/06/21 15:05 Pain control: tolerating well Pelvic Exam Dilation (cm): 1 Effacement (%): 75 station: -3 Amniotic membrane status: Intact (AROM clear AF IUPC and FSE placed) Contractions Monitor mode: External Contraction pattern: Irregular Contraction phase: Resting Contraction intensity: Moderate Status status: Category l Assessment and Plan Assessment: induction ongoing Plan: continuous present management Comments: finish cytotec doses then plan p itocin/epidural/magnesium/antibiotics/arom
[2021-05-06] MEDS: ACETAMINOPHEN 500 MG TABLET 1000 MG PO (15:17)
--- NOTE | 2021-05-06 17:04 | WPDANESEPP ---
Anes - Eval Pre Procedure Procedure: labor epidural Date/Time: 05/06/21 17:04 Surgeon: katiuska Pre Op Diagnosis: Induction of Labor Patient Data Age: 21 Gender: F Height: 1.63 m Weight: 120 kg Last Vital Signs Temp 36.9 C 05/06/21 16:16 Pulse 105 H 05/06/21 16:16 Resp 20 05/06/21 16:16 BP 133/83 05/06/21 16:16 Allergies Allergy/AdvReac Type Severity Reaction Status Date / Time No Known Allergies Allergy Verified 02/21/21 20:24 Home Medications Medication Instructions Recorded Confirmed Type progesterone micronized 200 mg PO DAILY 09/29/20 05/05/21 History PNV cmb#95-ferrous fumarate-FA 1 tablet PO DAILY 01/10/21 05/05/21 History [] Laboratory Tests 05/05/21 07:22 Urine Cocaine Screen Negative (Negative) Patient hx anesthesia problems: none Family hx anesthesia problems: none Results Review: All pre-operative results and documents have been reviewed as part of the pre-operative evaluation. [facility] Past Medical History Medical History (Updated 05/05/21 @ 07:36 by Thomas Nassar MD) GBS (group B Streptococcus carrier), +RV culture, currently Genital herpes Healthy female adult Heterozygous MTHFR mutation C677T Maternal varicella, non-immune Obesity (BMI 35.0-39.9 without comorbidity) induced hypertension Rubella non-immune status, antepartum Surgical History Surgical History No history of previous surgery Social History Social History (Updated 05/05/21 @ 07:35 by Thomas Nassar MD) Social History: Quit smoking upon finding out she was . Smoking packs per day: 1 Smoking cigarettes per day: 20.0 Years smoked: 1 Smoking pack-years: 1.00 Smoking status: Current every day smoker Tobacco type: cigarettes Second hand tobacco smoke exposure: Yes Alcohol intake: never Substance use: current Substance use type: marijuana Living arrangements: with family Occupation/Education: unemployed Gender identity (if verbalized by the patient): Female Sexual Orientation (if Verbalized by the Patient): Straight or Heterosexual Spiritual care concerns: No Agree to blood products: Yes Exam Day of Procedure 05/06/21 17:04
[2021-05-06] MEDS: LACTATED RINGERS 1,000 ML 75 ML IV CONT ×3 (18:55→21:10)
[2021-05-06] MEDS: AMPICILLIN 2 GM/NS 100 ML 2 GM/100 ML BAG IVPB (18:56)
[2021-05-06] MEDS: MAGNESIUM SULF 4 GM/WATER100ML 4 GM/100 ML BAG IVPB (18:58)
[2021-05-06] MEDS: MAGNESIUM SULF 20GM/WATER500ML 500 ML 50 MG IV CONT (19:55)
[2021-05-06] MEDS: OXYTOCIN 30 UNITS/NS 500 ML 30 UNITS/500 ML BAG IV CONT (20:30)
--- NOTE | 2021-05-06 22:01 | PM.OBPNLAB ---
Pain Control Date/time seen: 05/06/21 22:01 Pain control: tolerating well and epidural Pelvic Exam Dilation (cm): 3 Effacement (%): 90 station: -1 Amniotic membrane status: Ruptured (AROM clear AF IUPC and FSE placed) Comments: bp 130/88 Contractions Monitor mode: Internal Contraction frequency: 3 Contraction duration: 45 Contraction pattern: Regular Contraction phase: Contraction Contraction intensity: Strong/Firm Status status: Category l Assessment and Plan Pitocin rate (mU/min): 2 Assessment: active labor and induction ongoing Plan: continuous present management Comments: PCN antibiotic and magnesium sulfate 2g/hr with christine catheter
[2021-05-06] MEDS: AMPICILLIN 1 GM/NS 50 ML 1 GM/50 ML BAG IVPB (23:10)
[2021-05-07] VITALS (105 sets, daily range): BP systolic 121–164; BP diastolic 55–101; PULSE 82–147; RESP 16–18; TEMP 36.6–37.3; O2SAT 94–100
[2021-05-07] MEDS: ACETAMINOPHEN 500 MG TABLET 1000 MG PO (02:20)
[2021-05-07] MEDS: AMPICILLIN 1 GM/NS 50 ML 1 GM/50 ML BAG IVPB (03:28)
--- NOTE | 2021-05-07 03:35 | PM.OBPNLAB ---
Pain Control Date/time seen: 05/07/21 03:35 Pain control: tolerating well and epidural Pelvic Exam Dilation (cm): 10 Effacement (%): 100 station: +2 Amniotic membrane status: Ruptured (AROM clear AF IUPC and FSE placed) Contractions Monitor mode: Internal Contraction frequency: 3 Contraction duration: 45 Contraction pattern: Regular Contraction phase: Contraction Contraction intensity: Strong/Firm Status status: Category l Assessment and Plan Pitocin rate (mU/min): 8 Assessment: active labor (COMPLETE STAGE 1) Plan: continuous present management and other (BEGIN STAGE 2 PUSHING)
[2021-05-07] MEDS: LACTATED RINGERS 1,000 ML 75 ML IV CONT (04:21)
[2021-05-07] MEDS: fentaNYL CITRATE INJ (*CRX) 100 MCG/2 ML VIAL IV PUSH (05:46)
[2021-05-07] MEDS: MAGNESIUM SULF 20GM/WATER500ML 500 ML 50 MG IV CONT ×2 (06:04→17:19)
--- NOTE | 2021-05-07 06:06 | P.PCNOB_ITS ---
OB - Delivery Note Procedure Delivery date: 05/07/21 Procedure: Normal spontaneous vertex vaginal delivery a viable male infant and placenta Repair of second-degree perineal laceration events: Induced HTN Intrapartal events: Mild Preeclampsia Induction method: per misoprostol protocol, per pitocin protocol and per cervidil protocol Delivery augmentation: rupture of membranes Delivery monitor: internal FHT and internal uterine Route of delivery: Episiotomy description: None Laceration Description: Perineal - 2nd Degree Delivery repair: vicryl ( 2 0) Specimen: Yes ( placenta, cord blood, cord blood gases) Quantitative Blood Loss (ml): 400 Anesthesia type: Epidural Disposition: floor Complications: none magnesium sulfate for 24 hours for PIH prophylaxis against eclampsia and Martínez catheter for output management as well as vulvar swelling secondary to hours of 2nd stage Narrative: patient was completely dilated began pushing at 3:40 a.m. on 05/07/2021. There was a normal spontaneous vertex vaginal delivery at 5:36 a.m. on 05/07/2021. of a viable male infant straight occiput posterior over an intact perineum. The shoulders were delivered without difficulty and the were is delivered and placed onto the maternal abdomen. There was spontaneous respirations and cry and no gross abnormalities on the examination and a spontaneous transition. The umbilical cord was clamped and then cut and after skin to skin the baby was transferred via the nursery nurse to the warmer for normal NRP. the scores 8 and 9 at 1 and 5 minutes weight 7 lb 5 oz and 20 in long. Cord blood gases and cord blood was then obtained and then Pitocin was given intravenously which allowed for normal spontaneous delivery of the placenta which was intact with a three-vessel cord and central insertion sent to pathology normal configuration. The uterus contracted well with blood and clots removed from the intrauterine cavity. Inspection of the vulva and the perineum revealed a second-degree laceration with swollen anterior posterior fourchette. The second-degree perineal laceration was then repaired with 2 0 Vicryl suture in a running fashion. Cervix vagina were checked no sponges were left in the vagina the anal sphincters intact the sponge needle counts were correct and a Martínez catheter was reinserted into the bladder. Patient tolerated procedure well in LDR room 102. [place] Baby Date of : 05/07/21 Time of : 05:36 Weeks of gestation at delivery: 37 Infant gender: Male Weight (pounds): 7 Weight (ounces): 5 presentation: vertex position: Left Occiput Posterior Placenta delivery description: Spontaneous and Normal Configuration cord vessel description: 3 Vessels score one minute: 8 score five minutes: 9 Narrative: normal transition taken to the nursery in stable condition normal exam
[2021-05-07] MEDS: OXYTOCIN 30 UNITS/NS 500 ML 30 UNITS/500 ML BAG 125 UNITS IV CONT (06:07)
[2021-05-07] MEDS: IBUPROFEN 600 MG TABLET PO (06:35)
[2021-05-07] MEDS: HYDROcodone/acetaminophen (*CRX) 5-325 MG TABLET 1 TAB PO ×2 (08:29→16:27)
[2021-05-07] MEDS: BENZOCAINE 20% AER SPR (*SP) 56 GM CAN 1 SPRAY TOPICAL (08:41)
[2021-05-07] MEDS: WITCH HAZEL 40 PADS 1 PAD TOPICAL ×2 (08:41→19:30)
--- NOTE | 2021-05-07 10:42 | OBPPTRN ---
0859-Patient transferred to post room #282 via wheelchair. Support person present. Oriented to unit, room, information board, rooming in, admission packet and security measures. Patient verbalizes understanding.
[2021-05-07] MEDS: KETOROLAC 30 MG/ML VIAL (*BKC) IV PUSH (17:20)
[2021-05-07] MEDS: HYDROcodone/acetaminophen (*CRX) 10-325 MG TABLET 1 TAB PO (22:00)
[2021-05-08] MEDS: IBUPROFEN 600 MG TABLET PO ×3 (00:01→12:53)
[2021-05-08] MEDS: ZOLPIDEM TARTRATE (*CRX) 5 MG TABLET PO (00:05)
[2021-05-08] MEDS: LACTATED RINGERS 1,000 ML 75 ML (00:09)
[2021-05-08 03:19] VITALS: BP 131/74; PULSE 83; RESP 18; TEMP 36.7
[2021-05-08 03:57] LABS: Hematocrit 29.5 % (37.0-47.0); Hemoglobin 9.7 g/dL (12.0-15.0)
[2021-05-08] MEDS: HYDROcodone/acetaminophen (*CRX) 5-325 MG TABLET 1 TAB PO ×2 (05:10→08:39)
--- NOTE | 2021-05-08 07:33 | PM.OBPNVD ---
OB - PN: Subj Subjective Date/time seen: 05/08/21 07:33 Patient comments: no complaints, pain well controlled, tolerating diet and flatus present [place] baby status: doing well and nursing well feeding status: exclusively breast feeding OB - PN: Obj Data Labs CBC & Chem 7: 05/08/21 03:12 05/05/21 07:22 Labs: Laboratory Results - last 24 hr 05/08/21 03:12 Hgb 9.7 L Hct 29.5 L OB - PN A/P Assessment and Plan (1) Term delivered: Code(s): O80 - Encounter for full-term uncomplicated delivery Status: Acute (2) induced hypertension: Code(s): O13.9 - Gestational [-induced] hypertension without significant proteinuria, unspecified trimester Status: Acute Plan day: 1 Plan: routine care, discharge home and follow up 6 weeks Time Spent With Patient Time: Total time spent is greater than 50% in coordination of care (as documented) at patient's floor/unit and/or counseling patient: Time with patient: less than 15 minutes Review of Systems Review of Systems: All systems reviewed & are unremarkable except as noted in HPI and below Exam Const: General: comfortable, no acute distress, alert and awake Chest: Breast/axilla inspection: normal inspection of the breasts Resp: Effort & Inspection: normal respiratory effort Auscultation: clear to auscultation bilaterally Cardio: Rate: regular rate GI: GI Palp: Yes Soft to palpation Percussion: Yes normal to percussion Auscultation: normal bowel sounds : General: Yes no CVA tenderness External Female Exam: normal external appearance and external swelling Bimanual exam- vagina & uterus: non-tender Urinary Catheter: Urinary Catheter: patent and draining and urine clear Psych: Appearance: grossly normal Mental Status: mental status grossly normal Affect: normal affect Attitude: cooperative Thought content: Yes Normal thought content present Judgement: Good judgement present (Psych)
[2021-05-08 08:00] VITALS: BP 122/68; PULSE 85; RESP 16; TEMP 37.1; O2SAT 99
[2021-05-08] MEDS: POLYSACCHARIDE IRON COMPLEX 150 MG CAPSULE PO ×2 (08:37→16:25)
[2021-05-08] MEDS: DOCUSATE SODIUM 100 MG CAPSULE PO ×2 (08:38→16:25)
[2021-05-08 12:11] VITALS: BP 126/83; PULSE 95; RESP 16; TEMP 36.9; O2SAT 98
[2021-05-08 16:47] VITALS: BP 138/69; PULSE 93; RESP 16; TEMP 36.7; O2SAT 99
[2021-05-08 20:26] VITALS: BP 135/86; PULSE 101; RESP 18; TEMP 36.8; O2SAT 99
[2021-05-08 23:43] VITALS: BP 138/80
[2021-05-09 03:46] VITALS: BP 142/84
--- NOTE | 2021-05-09 06:17 | PM.OBDSVD ---
DS: Admitting Diagnosis Discharge Date May 09 2021 Admitting Diagnosis 1) Term : Code(s): Z34.90 - Encounter for supervision of normal , unspecified, unspecified trimester Status: Acute (2) Encounter for elective induction of labor: Code(s): Z34.90 - Encounter for supervision of normal , unspecified, unspecified trimester Status: Acute (3) induced hypertension: Code(s): O13.9 - Gestational [-induced] hypertension without significant proteinuria, unspecified trimester Status: Acute (4) GBS (group B Streptococcus carrier), +RV culture, currently : Code(s): O99.820 - Streptococcus B carrier state complicating Status: Acute (5) Genital herpes: Code(s): A60.00 - Herpesviral infection of urogenital system, unspecified Status: Acute (6) Rubella non-immune status, antepartum: Code(s): O99.891 - Other specified diseases and conditions complicating ; Z28.3 - Underimmunization status Status: Acute (7) Maternal varicella, non-immune: Code(s): O09.899 - Supervision of other high risk pregnancies, unspecified trimester; Z28.3 - Underimmunization status Status: Acute (8) Heterozygous MTHFR mutation C677T: Code(s): Z15.89 - Genetic susceptibility to other disease Status: Acute (9) Obesity (BMI 35.0-39.9 without comorbidity): Code(s): E66.9 - Obesity, unspecified Status: Acute DS: Discharge Diagnosis Discharge Diagnosis (1) Term delivered: Code(s): O80 - Encounter for full-term uncomplicated delivery Status: Acute (2) induced hypertension: Code(s): O13.9 - Gestational [-induced] hypertension without significant proteinuria, unspecified trimester Status: Acute (3) GBS (group B Streptococcus carrier), +RV culture, currently : Code(s): O99.820 - Streptococcus B carrier state complicating Status: Acute (4) Genital herpes: Code(s): A60.00 - Herpesviral infection of urogenital system, unspecified Status: Acute (5) Rubella non-immune status, antepartum: Code(s): O99.891 - Other specified diseases and conditions complicating ; Z28.3 - Underimmunization status Status: Acute (6) Maternal varicella, non-immune: Code(s): O09.899 - Supervision of other high risk pregnancies, unspecified trimester; Z28.3 - Underimmunization status Status: Acute (7) Heterozygous MTHFR mutation C677T: Code(s): Z15.89 - Genetic susceptibility to other disease Status: Acute (8) Obesity (BMI 35.0-39.9 without comorbidity): Code(s): E66.9 - Obesity, unspecified Status: Acute OB - DS: Summary Hospital Course Time spent discussing smoking cessation with patient: 3 to 10 minutes OB Procedures : NST, PIH Mgmt and Ultrasound OB Procedures Intrapartum: Spontaneous Vag Delivery and GBS prophylaxis OB Procedures: : Rubella lg and Other ( magnesium sulfate prophylaxis for 24 hours) Peripartum Data Delivery Method: Natural Vaginal Laceration Description: Perineal - 2nd Degree Episiotomy description: None Procedures: normal spontaneous vertex vaginal delivery a viable male and placenta Repair of second-degree perineal laceration complications: none [place] 1: Gender: Male Disposition of : home Status at Discharge Cognitive/behavioral status at discharge: normal Functional status at discharge: independent ambulation Overall status at discharge: patient is back to baseline Time Spent with Patient Time attestation: Total time spent providing and/or coordinating discharge services: Time spent: Less than 30 minutes Exam Const: General: cooperative, healthy appearing, comfortable, no acute distress, well developed, alert, awake and Physically active Nutritional Appearance: average
[2021-05-09 08:30] VITALS: BP 135/84; PULSE 91; RESP 16; TEMP 37.3; O2SAT 98
[2021-05-09] MEDS: POLYSACCHARIDE IRON COMPLEX 150 MG CAPSULE PO (09:18)
[2021-05-09] MEDS: MEASLES,MUMPS,RUBELLA VACCINE 0.5 ML VIAL SUB-Q (09:19)
[2021-05-09] MEDS: DOCUSATE SODIUM 100 MG CAPSULE PO (09:19)
[2021-05-09 11:53] VITALS: BP 146/83; PULSE 114; RESP 16; TEMP 37.5; O2SAT 97
--- NOTE | 2021-05-09 13:24 | PC.NURSE ---
1100 Patient viewed the discharge video Mother & Baby Care, The First Two Weeks . Patient was given the opportunity and encouraged to ask questions. Patient verbalized understanding of information shared and has been given the mother/baby guide for home reference.
[2021-05-10 10:19] VITALS: BP 143/86; PULSE 99; RESP 20; TEMP 37; O2SAT 98
[2021-06-08 11:24] LABS: Reference Lab Test Result None Detected
== END 2021-05-09 12:10 | disposition home or self-care (01) | DRG 560 ==
LOC: ANHLDR 05-07 06:25 → ANHOB2 05-07 09:09
PROVIDERS: Admitting Provider Obstetrics & Gynecology; PCP Physician Assistant; Visit Provider Obstetrics & Gynecology
DX: O14.94 Unspecified pre-eclampsia, complicating childbirth (principal); Z37.0 Single live birth; Z3A.38 38 weeks gestation of pregnancy; O36.8330 Maternal care for abnormalities of the fetal heart rate or rhythm, third trimester, not applicable or unspecified; O99.824 Streptococcus B carrier state complicating childbirth; O70.1 Second degree perineal laceration during delivery; O99.214 Obesity complicating childbirth; E66.9 Obesity, unspecified; O98.32 Other infections with a predominantly sexual mode of transmission complicating childbirth; A60.00 Herpesviral infection of urogenital system, unspecified; O99.284 Endocrine, nutritional and metabolic diseases complicating childbirth; E72.12 Methylenetetrahydrofolate reductase deficiency; O99.334 Smoking (tobacco) complicating childbirth; F17.210 Nicotine dependence, cigarettes, uncomplicated
CPT/HCPCS: 36415; 80053; 80307; 84550; 85014; 85018; 85025; 86592; 86703; 86850; 86900; 86901; 88307; 90710; A9270; G0432; J0290; J1885; J2590; J2795; J3010; J3475; J7120

== ENCOUNTER 2022-10-16 10:45 | Emergency (ER) | payer OTHER, SELFPAY ==
[2022-10-16 11:22] VITALS: BP 150/91; PULSE 98; RESP 16; TEMP 36.8; O2SAT 99
--- NOTE | 2022-10-16 12:10 | ED.GENADULT ---
HPI - General Adult General Chief complaint: Unspecified Stated complaint: swollen uvula Time Seen by Provider: 10/16/22 11:57 History of Present Illness HPI narrative: 22-year-old female presents to the emergency room today for complaints of sore throat and swollen uvula that started this morning. No fever or chills. She reports mild sinus congestion and drainage. No nausea vomiting or diarrhea. No cough or shortness of breath. Related Data Home Medications Medication Instructions Recorded Confirmed vit no.95-ferrous 1 tablet PO DAILY 01/10/21 05/05/21 fumarate 28 mg-folic acid 800 mcg tablet () Allergies Allergy/AdvReac Type Severity Reaction Status Date / Time No Known Allergies Allergy Verified 02/21/21 20:24 Review of Systems Review of Systems: CONSTITUTIONAL: Denies fever, chills, or sweats. EYES: Denies visual changes, redness, or discharge. ENT: as per HPI. CARDIOVASCULAR: Denies chest pain, palpitations, or edema. RESPIRATORY: Denies cough or dyspnea. GASTROINTESTINAL: Denies abdominal pain, nausea, vomiting, or diarrhea. GENITOURINARY: Denies dysuria or hematuria. SKIN: Denies rash or itching. MUSCULOSKELETAL: Denies back pain, joint pain, or myalgia. NEUROLOGIC: Denies headache, numbness, dizziness, or weakness. PSYCHIATRIC: Denies anxiety or depression. [facility] Past Medical History Medical History GBS (group B Streptococcus carrier), +RV culture, currently Genital herpes Healthy female adult Heterozygous MTHFR mutation C677T Maternal varicella, non-immune Obesity (BMI 35.0-39.9 without comorbidity) induced hypertension Rubella non-immune status, antepartum Surgical History Surgical History No history of previous surgery Social History Social History Social History: Quit smoking upon finding out she was . Smoking packs per day: 1 Smoking cigarettes per day: 20.0 Years smoked: 1 Smoking pack-years: 1.00 Smoking status: Current every day smoker Tobacco type: cigarettes Second hand tobacco smoke exposure: Yes Alcohol intake: never Substance use: current Substance use type: marijuana Living arrangements: with family Occupation/Education: unemployed Gender identity (if verbalized by the patient): Female Sexual Orientation (if Verbalized by the Patient): Straight or Heterosexual Spiritual care concerns: No Agree to blood products: Yes Exam Narrative: GENERAL: Well-appearing, well-nourished, and in no acute distress. HEAD: Normocephalic, atraumatic. EYES: PERRLA and EOMI. ENT: Nares clear, no rhinorrhea or epistaxis. Mucous membranes moist. Oropharynx erythematous, no exudates or tonsillar enlargement. Bilateral TMs pearly [place] nonbulging NECK: Supple. No adenopathy or masses. No carotid bruits or JVD CHEST: Clear to auscultation. No respiratory distress. No wheezes rales or rhonchi HEART: Regular rate and rhythm. No murmur heard. Normal peripheral pulses. ABDOMEN: Soft, nontender, nondistended, normal active bowel sounds. EXTREMITIES: Normal range of motion. No edema. SKIN: Warm, dry, no rash. NEURO: No focal deficits. Alert and oriented x3. PSYCH: Normal mood and affect. Course Vital Signs Vital signs: Vital Signs Temperature 36.8 C 10/16/22 11:22 Pulse Rate 98 10/16/22 11:22 Respiratory Rate 16 10/16/22 11:22 Blood Pressure 150/91 H 10/16/22 11:22 Pulse Oximetry 99 10/16/22 11:22 Temperature 36.8 C 10/16/22 11:22 Pulse Rate 98 10/16/22 11:22 Respiratory Rate 16 10/16/22 11:22 Blood Pressure 150/91 H 10/16/22 11:22 Pulse Oximetry 99 10/16/22 11:22 Medical Decision Making Vital Signs Vital Signs: Vital Signs Temperature 36.8 C 10/16/22 11:22 Pulse Rate 98 10/16/22 11:
[2022-10-16 12:54] LABS: Strep Group A RT-PCR DETECTED (Negative)
== END 2022-10-16 13:21 | disposition home or self-care (01) ==
PROVIDERS: Emergency Provider Nurse Practitioner Family; PCP Physician Assistant
DX: O99.891 Other specified diseases and conditions complicating pregnancy (principal); J02.0 Streptococcal pharyngitis; Z3A.00 Weeks of gestation of pregnancy not specified
CPT/HCPCS: 87651; 99283

== ENCOUNTER 2023-02-04 08:54 | Emergency (ER) | payer OTHER, SELFPAY ==
--- NOTE | ~2023-02-04 | XR_ITS ---
EXAMINATION: XR ankle LT min 3V DATE: 02/04/2023 09:54 INDICATION: Left ankle pain. Fall. TECHNIQUE: 4 views of left ankle were obtained. COMPARISON: None. FINDINGS: Bone alignment is normal. No fracture. Joint spaces are well maintained. IMPRESSION: 1. No fracture. Reviewed, dictated and finalized at location A. IMPRESSION: 1. No fracture.
[2023-02-04 08:55] VITALS: BP 149/96; PULSE 86; RESP 18; TEMP 36.6; O2SAT 100
[2023-02-04 09:19] VITALS: BP 147/93; PULSE 76; RESP 18; O2SAT 98
[2023-02-04 10:02] LABS: Strep Group A RT-PCR NOT DETECTED (Negative)
[2023-02-04 10:13] LABS: Influenza A QL RT-PCR Negative (Negative); Influenza B QL RT-PCR Negative (Negative); SARS-CoV-2 RNA PCR Negative (Negative)
--- NOTE | 2023-02-04 10:23 | ED.LOWEXIN ---
HPI - Extremity Injury (Lower) General Chief Complaint: Extremity Injury, Lower Stated Complaint: left ankle injury Time Seen by Provider: 02/04/23 09:26 Source: patient Mode of arrival: ambulatory Limitations: no limitations History of Present Illness HPI Narrative: Patient is a 23-year-old female who presents ED with report of left ankle pain. Patient reports she tripped and fell down her stairs at home last Saturday. She sustained an injury to her left ankle. She was seen in [facility] after the fall and had negative x-rays. Patient reports having persistent pain, worse with ambulation. She is able to walk, but has discomfort with this. Complains of pain medially. Patient also has an abrasion to her left medial lower leg that is painful with surrounding erythema. Denies any fevers. Denies any numbness or tingling. Tetanus UTD. Patient also reports she woke up this morning with a sore throat. She is concerned she may have strep throat. Denies any known sick contacts. Denies fever, cough, difficulty breathing Related Data Home Medications Medication Instructions Recorded Confirmed vit no.95-ferrous 1 tablet PO DAILY 01/10/21 05/05/21 fumarate 28 mg-folic acid 800 mcg tablet () Allergies Allergy/AdvReac Type Severity Reaction Status Date / Time No Known Allergies Allergy Verified 02/04/23 09:08 Review of Systems Review of Systems: CONSTITUTIONAL: Denies fever, chills, or sweats. ENT: See HPI. RESPIRATORY: Denies dyspnea. GASTROINTESTINAL: Denies abdominal pain, nausea, vomiting. SKIN: Denies rash or itching. MUSCULOSKELETAL: See HPI. NEUROLOGIC: See HPI. All systems reviewed & are unremarkable except as noted in HPI and below PMFSH Past Medical History Medical History GBS (group B Streptococcus carrier), +RV culture, currently Genital herpes Healthy female adult Heterozygous MTHFR mutation C677T Maternal varicella, non-immune Obesity (BMI 35.0-39.9 without comorbidity) induced hypertension Rubella non-immune status, antepartum Surgical History Surgical History No history of previous surgery Social History Social History Social History: Quit smoking upon finding out she was . Smoking packs per day: 1 Smoking cigarettes per day: 20.0 Years smoked: 1 Smoking pack-years: 1.00 Smoking status: Current every day smoker Tobacco type: cigarettes Second hand tobacco smoke exposure: Yes Alcohol intake: never Substance use: current Substance use type: marijuana Living arrangements: with family Occupation/Education: unemployed Gender identity (if verbalized by the patient): Female Sexual Orientation (if Verbalized by the Patient): Straight or Heterosexual Spiritual care concerns: No Agree to blood products: Yes Exam Narrative: GENERAL: Well appearing, obese with BMI of 36.7, non-toxic, in no acute distress. HEAD: Normocephalic, atraumatic. ENT: Mucous membranes moist. Mild posterior pharynx erythema, no tonsillar hypertrophy or exudate. Uvula midline. No stridor, trismus. NECK: Supple. No adenopathy, no masses. RESPIRATORY: Airway patent, respirations nonlabored. Clear to auscultation bilaterally, no rales, rhonchi, wheezing. CARDIOVASCULAR: Regular rate and rhythm without murmurs, rubs, or gallops. Pedal pulses 2+ and equal bilaterally. MUSCULOSKELETAL: Moves all extremities. Strength/ROM intact without gross deformities. Sensation intact. Tenderness to palpation along medial malleoli of left ankle, extending into left medial lower leg. Area of erythema and skin abrasion to the left medial lower leg with area of scabbing that appears yellow/green, tender to palpation, no purulent drainage, minimal warmth. SKIN: Warm,
[2023-02-04 10:29] VITALS: BP 125/62; PULSE 77; RESP 18; O2SAT 95
[2023-02-04] MEDS: CEPHALEXIN 500 MG CAPSULE PO (10:47)
== END 2023-02-04 10:59 | disposition home or self-care (01) ==
PROVIDERS: Emergency Provider Physician Assistant; PCP Physician Assistant
DX: S93.402A Sprain of unspecified ligament of left ankle, initial encounter (principal); J02.9 Acute pharyngitis, unspecified; L03.116 Cellulitis of left lower limb; F17.210 Nicotine dependence, cigarettes, uncomplicated; W10.9XXA Fall (on) (from) unspecified stairs and steps, initial encounter
CPT/HCPCS: 73610; 87636; 87651; 99283; A9270